=== PATIENT | male | born 1960 | race Two or more races ===

== ENCOUNTER 2016-10-07 14:23 | Emergency (ER) | payer OTHER ==
[~2016-10-07] VITALS: Ht 172.7 cm; Wt 99.8 kg
[2016-10-07] MEDS ORDERED: TETRACAINE HCL 0.5% OPHTALMIC 15 ML BOTTLE ONE (15:07)
[2016-10-07] MEDS ORDERED: FLUORESCEIN SODIUM OPHTH 1 EA STRIP ONE (15:07)
[2016-10-07 16:29] VITALS: BP 121/81
== END 2016-10-07 16:30 | disposition home or self-care (01) ==
LOC: ER 14:24
DX: S00.11XA Contusion of right eyelid and periocular area, initial encounter (principal); I10 Essential (primary) hypertension; Z90.89 Acquired absence of other organs; Y08.89XA Assault by other specified means, initial encounter; Y93.89 Activity, other specified; Y92.89 Other specified places as the place of occurrence of the external cause; Y99.8 Other external cause status
CPT/HCPCS: 70450; 99284; A4606; Z7610